=== PATIENT | female | born 2000 | race Caucasian/White ===

== ENCOUNTER 2024-07-11 18:37 | Emergency (ER) | payer OTHER, SELFPAY ==
--- NOTE | ~2024-07-11 | XR_ITS ---
XR hand RT min 3V Ordering provider: Sebastian Verduzco MD History: . fall . Comparison: None. FINDINGS: BONES: No acute fracture or dislocation. JOINT SPACES: Normal. SOFT TISSUES: Normal. IMPRESSION: No acute osseous abnormality right hand. Reviewed, dictated and finalized at location A.
[2024-07-11 18:54] VITALS: BP 145/88; PULSE 102; RESP 15; TEMP 37.4; O2SAT 99
[2024-07-11] MEDS: KETOROLAC (*BKC) 60 MG/2 ML VIAL IM (21:10)
--- OUTSIDE RECORDS SUMMARY | 2024-07-11 21:48 | XMS_ITS | Referral Summary ---
Author Organization [address] Address [address] [place] [phone] Care Team Providers Care Mobile Security Specialist Name Role Phone Unknown, Khris Primary Care Provider Unavail able Allergies No known active allergies Medications No known medications Active Problems No known active problems Social History Tobacco Use Types Packs/Day Years Used Date Smoking Tobacco: Never Assessed Comments Unknown Sex and Gender Information Value Date Recorded Sex Assigned at Not on file Legal Sex Female 9:30 AM CDT Gender Identity Not on file Sexual Orientation Not on file Last Filed Vital Signs Vital Sign Reading Time Taken Comments Blood Pressure 146/88 09/15/2023 4:51 PM CDT Pulse 95 09/15/2023 4:51 PM CDT Temperature 36.7 C (98.1 F) 09/15/2023 4:51 PM CDT Respiratory Rate 18 09/15/2023 4:51 PM CDT Oxygen Saturation 99% 09/15/2023 4:51 PM CDT Inhaled Oxygen Concentration - - Weight 69.8 kg (153 lb 14.4 oz) 09/15/2023 4:51 PM CDT Height - - Body Mass Index - - Plan of Treatment Not on file Care Teams Mobile Security Specialist Relationship Specialty Start Date End Date Unknown, Khris PCP - General 09/15/23
--- OUTSIDE RECORDS SUMMARY | 2024-07-11 21:48 | XMS_ITS | Clinical Summary ---
Author Organization [facility] [address] [place] Address [address] [place] [phone] Care Team Providers Care Silica Dry Press Helper Name Role Phone Unknown, Notinfile Primary Care Provider Unavail able Allergies No [...] on file Sexual Orientation Not on file Obstetrics History Last Filed Vital Signs Vital Sign Reading [...] Mass Index - - Plan of Treatment Health Maintenance Due Date Last Done Comments Cervical Cancer Screening 2002 Depression Screening 2002 Hepatitis C Screening 2002 DTaP/Tdap/Td Vaccine (1 - Tdap) 2013 Varicella Vaccines (1 of 2 - 13+ 2-dose series) 10/08/2015 HPV Vaccines (1 - 3-dose series) 2017 Meningococcal B Vaccine (1 o f 2 - Standard) 2018 Hepatitis B Screening 2020 Regular Well Visit/Exam 18-64 2020 Influenza Vaccine (#1) 2023 Meningococcal Vaccine Aged Out No jackie kb eligible based on patient's age to complete this topic Pneumococcal vaccine <65 Aged Out No longer eligible based on patient's age to complete this topic Care Teams Silica Dry Press Helper Relationship Specialty Start Date End Date Unknown, Notinfile PCP - General 09/15/23
--- NOTE | 2024-07-11 22:11 | ED_ITS ---
HPI - Extremity Injury (Upper) General Chief Complaint: Extremity Injury, Upper Stated Complaint: right hand injury Time Seen by Provider: 07/11/24 20:20 History of Present Illness HPI narrative: Patient is a 23-year-old female presents to the ER with right thumb pain. She reports she hurt her right hand last week when she tripped and fell at work. Patient reports her thumb “went through the slot of a Pallet. She denies any decreased range of motion, wrist pain, swollen joints, or bruising. Patient denies any pertinent medical history relevant to this ER visit. Related Data Allergies Allergy/AdvReac Type Severity Reaction Status Date / Time No Known Allergies Allergy Verified 07/11/24 18:38 Review of Systems Review of Systems: All systems reviewed & are unremarkable except as noted in HPI and below Exam Narrative: GENERAL: Well appearing, well-nourished, non-toxic, in no acute distress. HEAD: Normocephalic, atraumatic. NECK: Supple. No adenopathy, no masses. RESPIRATORY: Airway patent, respirations nonlabored. Clear to auscultation bilaterally, no rales, rhonchi, wheezing. CARDIOVASCULAR: Regular rate and rhythm without murmurs, rubs, or gallops. Peripheral pulses 2+ and equal bilaterally. ABDOMINAL: Soft, nontender, nondistended, no hepatosplenomegaly. Normoactive BS. MUSCULOSKELETAL: Moves all extremities. Strength/ROM intact without gross deformities. Negative snuffbox tenderness. SKIN: Warm, dry, normal color. No rashes. NEURO: A&O X3. Speech clear. Cranial nerves II-XII intact. No ataxic movements. PSYCHIATRIC: Appropriate mood and affect. Normal interaction. Course Vital Signs Vital signs: Vital Signs Temperature 37.4 C 07/11/24 18:54 Pulse Rate 102 H 07/11/24 18:54 Respiratory Rate 07/11/24 18:54 Blood Pressure 145/88 H 07/11/24 18:54 Pulse Oximetry 99 07/11/24 18:54 Oxygen Delivery Room Air 07/11/24 18:54 Temperature 37.4 C 07/11/24 18:54 Pulse Rate 102 H 07/11/24 18:54 Respiratory Rate 07/11/24 18:54 Blood Pressure 145/88 H 07/11/24 18:54 Pulse Oximetry 99 07/11/24 18:54 Oxygen Delivery Room Air 07/11/24 18:54 MDM - Extremity Injury (Upper) MDM Narrative Medical decision making narrative: Patient is a 23-year-old female presents to the ER with right thumb pain. She reports she hurt her right hand last week when she tripped and fell at work. Patient reports her thumb “went through the slot of a Pallet. She denies any decreased range of motion, wrist pain, swollen joints, or bruising. Patient denies any pertinent medical history relevant to this ER visit. Imaging Ordered: Right hand x-ray Medications Ordered: Toradol 60 mg IM Results: Pt's x-ray indicates No acute osseous abnormality right hand. Diagnosis: Right thumb sprain Patient Education/Shared MDM: Results of imaging shared with patient. She endorses mild improvement of symptoms following medication administration. Patient strongly advised to maintain hydration status upon discharge and follow- up with their PCP as soon as possible. She will be discharged home with a prescription for Ibuprofen. Strict return precautions provided. Patient verbalized understanding and is in agreement with plan. Vital signs stable at time of discharge. All questions answered. Differential Diagnosis Differential diagnosis: Likely sprain and strain of wrist, finger sprain, dislocation of finger and fracture of hand Imaging Data Attestation: I personally reviewed and interpreted this imaging study as follows: Radiologist's impression: Impressions Hand X-Ray 07/11/24 20:53 IMPRESSION: No acute osseous abnormality right hand. Discharge Plan Discharge Clinical Impression: Sprain and strain of wrist, Finger sprain Patient Disposition: Home Condition: Stable Instructions: Antibiotic Form, Finger Sprain (ED), P.R.I.C.E. Treatment (ED) Additional Instructions: Please return to the ER with any worsening symptoms. Follow-up with primary care provider as needed. You may take Tylenol and/or ibuprofen for pain control. Patient Language: Portuguese Prescriptions: New ibuprofen 600 mg tablet 600 mg PO TID PRN (Reason: pain) Qty: 14 0RF Follow-up/Referrals: PHYSICIAN,INSTRUCTOR PHYSICAL EDUCATION [Primary Care Provider] - Stand Alone Forms: Work/School Release IP Time of Disposition: 22:30
[2024-07-11 22:42] VITALS: BP 137/86; PULSE 99; RESP 17; TEMP 36.8; O2SAT 100
== END 2024-07-11 22:44 | disposition home or self-care (01) ==
PROVIDERS: Emergency Provider Registered Nurse
DX: S63.501A Unspecified sprain of right wrist, initial encounter (principal); S63.601A Unspecified sprain of right thumb, initial encounter; W18.30XA Fall on same level, unspecified, initial encounter
CPT/HCPCS: 73130; 96372; 99283; J1885

== ENCOUNTER 2024-07-29 11:46 | Emergency (ER) | payer OTHER, SELFPAY ==
--- NOTE | ~2024-07-29 | XR_ITS ---
XR finger 1st RT min 2V 07/29/2024 12:48 INDICATION: Right first finger pain PROCEDURE: 3 views right first finger COMPARISON: 07/11/2024 FINDINGS: Fracture, dislocation or subluxation is not identified. The soft tissues appear within norm al limits. No foreign bodies are identified. IMPRESSION: 1: NO ACUTE BONE OR JOINT ABNORMALITY IDENTIFIED. Reviewed, dictated and finalized at location A.
[2024-07-29 11:49] VITALS: BP 129/89; PULSE 87; RESP 17; TEMP 36.6; O2SAT 99
--- OUTSIDE RECORDS SUMMARY | 2024-07-29 12:04 | XMS_ITS | Clinical Summary ---
Author Organization [facility] [address] [place] Address [address] [place] [phone] Care Team Providers Care Candy Spreader Name Role Phone Unknown, Notinfile Primary Care [...] Regular Well Visit/Exam 18-64 2020 Influenza Vaccine (Season Ended) 2024 Meningococcal Vaccine Aged Out No jackie kb eligible based on patient's age to complete this topic Pneumococcal vaccine <65 Aged Out No longer eligible based on patient's age to complete this topic Care Teams Candy Spreader Relationship Specialty Start Date End Date Unknown, Notinfile PCP - General 09/15/23
--- OUTSIDE RECORDS SUMMARY | 2024-07-29 12:04 | XMS_ITS | Referral Summary ---
Author Organization [facility] [address] [place] Address [address] [place] [phone] Care Team Providers Care Shipping Technician Name Role Phone Unknown, Khris Primary Care [...] of Treatment Not on file Care Teams Shipping Technician Relationship Specialty Start Date End Date Unknown, Khris PCP - General 09/15/23
--- NOTE | 2024-07-29 13:07 | ED_ITS ---
HPI - Extremity Injury (Upper) General Chief Complaint: Extremity Injury, Upper Stated Complaint: Recheck of right thumb-cont. to have pain Time Seen by Provider: 07/29/24 12:04 History of Present Illness HPI narrative: Patient is a 23-year-old female who presents ER with right thumb pain. She is evaluated 2 weeks ago after a fall and was placed in a splint. She has pain when she performs opposition with the thumb. She has full range of motion. No new trauma. No redness or swelling. She has continued to wear her splint. Related Data Allergies Allergy/AdvReac Type Severity Reaction Status Date / Time No Known Allergies Allergy Verified 07/29/24 11:51 Review of Systems Constitutional: Constitutional: Reports no additional constitutional complaints Musculoskeletal: Musculoskeletal: Reports no additional musculoskeletal complaints Neurologic: Reports system reviewed and no additional complaints, except as documented PMFSH Past Medical History Medical History (Updated 07/29/24 @ 13:11 by Jeramy Campbell MD) Healthy female adult Exam Narrative: GENERAL: Well-appearing, well-nourished, and in no acute distress. HEAD: Normocephalic, atraumatic. EXTREMITIES: Normal range of motion. No edema. Normal right thumb exam. SKIN: Warm, dry, no rash. NEURO: Alert and oriented x3. PSYCH: Normal mood and affect. Course Course Emergency Course: Suspect stiffness related to prolonged immobilization. Recommend discontinuation of splint in proceeding with normally. Vital Signs Vital signs: Vital Signs Temperature 98 F 07/29/24 11:49 Pulse Rate 87 07/29/24 11:49 Respiratory Rate 17 07/29/24 11:49 Blood Pressure 129/89 07/29/24 11:49 Pulse Oximetry 99 07/29/24 11:49 Oxygen Delivery Room Air 07/29/24 11:49 Temperature 98 F 07/29/24 11:49 Pulse Rate 87 07/29/24 11:49 Respiratory Rate 17 07/29/24 11:49 Blood Pressure 129/89 07/29/24 11:49 Pulse Oximetry 99 07/29/24 11:49 Oxygen Delivery Room Air 07/29/24 11:49 MDM - Extremity Injury (Upper) Imaging Data Radiologist's impression: ITS Impressions Finger X-Ray 07/29/24 12:50 IMPRESSION: 1: NO ACUTE BONE OR JOINT ABNORMALITY IDENTIFIED. Discharge Plan Discharge Clinical Impression: Pain of right thumb Patient Disposition: Home Condition: Stable Additional Instructions: You may stop wearing your splint and that will likely help your discomfort. It is felt you have stiffness related to prolonged immobilization. Take Tylenol or ibuprofen as needed for pain. Patient Language: [place] Prescriptions: No Action ibuprofen 600 mg tablet 600 mg PO TID PRN (Reason: pain) Qty: 14 0RF Follow-up/Referrals: PHYSICIAN,WELLNESS AMBASSADOR [Primary Care Provider] - 1 Week
--- OUTSIDE RECORDS SUMMARY | 2024-07-29 13:23 | XMS_ITS | Referral Summary ---
Author Organization [facility] [address] [place] Address [address] [place] [phone] Care Team Providers Care Patient Relations Specialist Name Role Phone Unknown, Khris Primary [...] of Treatment Not on file Care Teams Patient Relations Specialist Relationship Specialty Start Date End Date Unknown, Khris PCP - General 09/15/23
--- OUTSIDE RECORDS SUMMARY | 2024-07-29 13:23 | XMS_ITS | Clinical Summary ---
Author Organization [facility] [address] [place] Address [address] [place] [phone] Care Team Providers Care Caustic Mixer Name Role Phone Unknown, Notinfile Primary Care [...] age to complete this topic Care Teams Caustic Mixer Relationship Specialty Start Date End Date Unknown, Notinfile PCP - General 09/15/23
== END 2024-07-29 13:30 | disposition home or self-care (01) ==
LOC: ANHED 13:13
PROVIDERS: Emergency Provider Emergency Medicine
DX: M79.644 Pain in right finger(s) (principal)
CPT/HCPCS: 73140; 99283